=== PATIENT | female | born 1965 ===

== ENCOUNTER 2016-11-21 09:55 | Day surgery (SDC) | payer MEDICAID ==
[2016-11-21 11:17] VITALS: TEMP 97.5
[2016-11-21 11:38] VITALS: O2SAT 100
[2016-11-21] MEDS ORDERED: Propofol 10 mg/ml Inj (20 ML) ONE (11:43)
[2016-11-21] MEDS ORDERED: Lactated Ringer's 500 ML IV SCH (11:45)
[2016-11-21 12:31] VITALS: PULSE 58
[2016-11-21 12:41] VITALS: BP 127/88; RESP 19
== END 2016-11-21 12:58 | disposition home or self-care (01) ==
LOC: C.ENDO 09:55
PROVIDERS: ATTEND Internal Medicine
DX: K63.89 Other specified diseases of intestine (principal); K64.8 Other hemorrhoids
CPT/HCPCS: 45378; 84703; J2704; J7120